=== PATIENT | male | born 1960 | race Caucasian/White ===

== ENCOUNTER 2024-02-04 00:58 | Emergency (ER) | payer OTHER, SELFPAY ==
[2024-02-04 01:05] VITALS: BP 133/91; PULSE 81; RESP 16; TEMP 36.4; O2SAT 98; BMI 28.9
--- NOTE | 2024-02-04 01:18 | PC.NURSE ---
Addendum entered by Betsy Garcia CNA 02/04/24 01:45: MORENA note: Patient spoke to Dr Small, and then attempted to give a urine specimen. He couldn't give a specimen. Patient is resting in bed. Original Note: MORENA note: Had patient change into green paper scrubs. Patient's belongings are in locked cabinet in a bag with his name on it. Patient put shoes, socks, underpants, jeans, shirt, and identification in bag. Patient is laying on bed with hands in front of him currently.
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
[2024-02-04 01:46] LABS: Add Manual Diff / Slide Review NO; Basophils Absolute Auto 0 /uL (0-100); Basophils Percent Auto 0.4 % (0-2); Eosinophils Absolute Auto 300 /uL (0-450); Eosinophils Percent Auto 2.4 % (2-4); Hematocrit 44.9 % (41-53); Hemoglobin 15.3 g/dL (13.5-17.5); Lymphocytes Absolute Auto 2200 /uL (1100-4500); Lymphocytes Percent Auto 18.6 % (25-40); Mean Corpuscular Hemoglobin 32.2 PG (26-34); Mean Corpuscular Volume 94.8 fL (80-100); Monocytes Absolute Auto 900 /uL (0-900); Monocytes Percent Auto 7.6 % (3-14); Neutrophils Absolute Auto 8300 /uL (1500-7000); Platelet Count 198 X10^3/uL (150-400); Red Blood Cell Count 4.73 X10^6/uL (4.5-5.9); Red Cell Distribution Width 12.6 % (11.6-14.8); White Blood Cell Count 11.7 X10^3/uL (4.5-11.0)
[2024-02-04 01:56] LABS: Acetaminophen < 10 ug/mL (10-30); Alanine Aminotransferase 28 IU/L (<50); Albumin 4.6 g/dL (3.5-5.0); Albumin Globulin Ratio 1.5 (1.0-2.8); Alkaline Phosphatase 96 U/L (38-126); Aspartate Aminotransferase 41 IU/L (17-59); BUN Creatinine Ratio 18.2 (6-22); Bilirubin Total 1.1 mg/dL (0.2-1.3); Blood Urea Nitrogen 20 mg/dL (9-20); Calcium 9.1 mg/dL (8.4-10.2); Carbon Dioxide 22 mmol/L (22-32); Chloride 101 mmol/L (98-107); Estimated Glomerular Filt Rate > 60 mL/min (>60); Ethanol (ETOH) < 10 mg/dL; Glucose 97 mg/dL (80-110); HEMOLYSIS < 15 (0-50); Lipase 76 U/L (23-300); Magnesium 2.4 mg/dL (1.6-2.3); Potassium 3.7 mmol/L (3.4-5.1); Salicylate < 1.0 mg/dL (<20); Sodium 133 mmol/L (137-145); Total Protein 7.6 g/dL (6.3-8.2)
[2024-02-04 02:28] LABS: Thyroid Stimulating Hormone 2.12 uIU/mL (0.47-4.68)
[2024-02-04] MEDS: PRAMIPEXOLE 0.25 MG TABLET 0.125 MG PO (02:45)
[2024-02-04] MEDS: CARBIDOPA-LEVODOPA 25/100 TABLET 1 EACH PO (02:45)
[2024-02-04 02:54] LABS: Influenza A - CEPHEID Flu A NEGATIVE (NEGATIVE); Influenza B - CEPHEID Flu B NEGATIVE (NEGATIVE); Respiratory Syncytial Virus Negative (Negative)
[2024-02-04 02:56] LABS: COVID-19 CEPHEID 4-PLEX PCR Negative (Negative)
[2024-02-04] MEDS: ONDANSETRON 4 MG ODT SL (03:36)
[2024-02-04 07:48] VITALS: BP 115/76; PULSE 88; RESP 12; O2SAT 98
--- NOTE | 2024-02-04 08:36 | PC.NURSE ---
0800: pt awake and alert. reports continued thoughts of SI. Appears generally depressed and tearful. advised EARTH SCIENCE LABORATORY TECHNICIAN consult at noon. breakfast ordered and coffee given. made aware of need of urine
[2024-02-04 10:17] LABS: Ur Creatinine Normal (Normal); Ur Specific Gravity Normal (Normal); Urine pH Normal (Normal)
[2024-02-04 10:18] LABS: UR Morphine/Opiate cutoff 300 Negative (Negative); Urine Amphetamines Negative (Negative); Urine Barbiturates Negative (Negative); Urine Benzodiazepines Negative (Negative); Urine Cocaine Negative (Negative); Urine MDMA Negative (Negative); Urine Methadone Negative (Negative); Urine Methamphetamines Negative (Negative); Urine Oxycodone Negative (Negative); Urine Phencyclidine Negative (Negative); Urine Tetrahydrocannabinol Positive (Negative); Urine Tricyclic Antidepressant Negative (Negative)
[2024-02-04] MEDS: CARBIDOPA-LEVODOPA ER 50/200 TABLET 0.5 EACH PO (11:44)
[2024-02-04] MEDS: PRAMIPEXOLE 0.25 MG TABLET 0.375 MG PO (11:45)
[2024-02-04 12:26] VITALS: BP 133/80; PULSE 88; RESP 16; O2SAT 99
[2024-02-04] MEDS: hydroCHLOROthiazide 25 MG TABLET 12.5 MG PO (13:33)
[2024-02-04] MEDS: GABAPENTIN 300 MG CAPSULE PO (13:33)
[2024-02-04] MEDS: FLUoxetine 20 MG CAPSULE 40 MG PO (13:36)
[2024-02-04] MEDS: LITHIUM 300 MG ER TABLET PO (13:54)
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
== END 2024-02-04 13:55 | disposition home or self-care (01) ==
PROVIDERS: Emergency Medicine; Emergency Provider Student in an Organized Health Care Education/Training Program
DX: F43.0 Acute stress reaction (principal); Z11.52 Encounter for screening for COVID-19
CPT/HCPCS: 0241U; 36415; 80053; 80305; 80320; 80329; 83690; 83735; 84443; 85025; 99284; G0480